=== PATIENT | female | born 1965 | race Caucasian/White ===

== ENCOUNTER → 2017-02-07 | Outpatient (CLI) | payer BC ==
--- NOTE | ~2017-02-07 | US24 ---
[facility] A Service [facility] RADIOLOGY TEXT RESULTS PATIENT: KASHIF ESTEVEZ LOCATION: [facility] : 61 UNIT #: [id number] AGE: [address]: Nam Farmer MD SEX: F ORDER DR: [id number] [facility]. [place], [place] [address] [id number] O MR#: [id number] Acc #: [id number] NAME: KASHIF ESTEVEZ. : 1965 SEX: F STUDY DATE/TIME: 02/07/2017 8:36 UNIT: [facility] ROOM: STUDY DESCRIPTION: US Breast Unilateral Attending Physician: Nam Farmer M.D. Ordering Physician: Nam Farmer M.D. Primary Care Physician: Nam Farmer M.D. MEDICAL IMAGING REPORT This report is preliminary unless electronic signature is present EXAM Left breast ultrasound. INDICATION Left breast pain in the axillary region. PROCEDURE Michaud-scale and Doppler imaging of the left breast from the 1-4 o'clock position in the axillary tail region. COMPARISON None. FINDINGS In area of patient's pain, there is a 12 mm benign simple cyst. No suspicious sonographic abnormality. IMPRESSION Benign left breast ultrasound. Recommend continued clinical followup. I recommend patient continue with yearly screening mammography. Patients over the age of 40 are entered into a reminder system with target due date for the next mammogram. A result letter will also be sent to the patient. BIRADS: 2 Benign findings. Dictated by... Tavo Romano M.D. THIS IS AN ELECTRONICALLY VERIFIED REPORT Tavo Romano M.D. at 02/09/2017 10:11 PM [facility] A Service [facility] RADIOLOGY TEXT RESULTS PATIENT: KASHIF ESTEVEZ LOCATION: [facility] : 61 UNIT #: [id number] AGE: [address]: Nam Farmer MD SEX: F ORDER DR: Rubi TD: 02/07/2017 20:26 JOB #: [id number] MEDICAL IMAGING REPORT Page 1 of 1 COPY
== END | disposition home or self-care (01) ==
LOC: CMAM 08:22
DX: N64.4 Mastodynia (principal)
CPT/HCPCS: 76641

== ENCOUNTER → 2017-02-09 | Day surgery (SDC) | payer BC ==
--- NOTE | ~2017-02-09 | US19 ---
[facility] A Service of [facility] RADIOLOGY TEXT RESULTS PATIENT: KASHIF ESTEVEZ LOCATION: [facility] : 61 UNIT #: [id number] AGE: [address]: Nam Farmer MD SEX: F ORDER DR: [id number] [facility] [address] [place], [place] [address] [id number] O MR#: [id number] Acc #: [id number] NAME: KASHIF ESTEVEZ. : 1965 SEX: F STUDY DATE/TIME: 02/09/2017 14:25 UNIT: [facility] ROOM: STUDY DESCRIPTION: US Breast Cyst Aspiiration W I Attending Physician: Nam Farmer M.D. Referring Physician: Nam Farmer M.D. Ordering Physician: Nam Farmer M.D. Primary Care Physician: Nam Farmer M.D. MEDICAL IMAGING REPORT This report is preliminary unless electronic signature is present EXAM Ultrasound-guided cyst aspiration left breast, 02/09/17. INDICATION 51-year-old female complaining of breast pain. On a recent ultrasound of 02/07/17, a benign cyst in the 1 o'clock position left breast was identified in the area of patient's pain symptoms. She has requested ultrasound-guided cyst aspiration for relief of her symptoms. FINDINGS The patient's prior imaging study was reviewed. Survey images here in the department confirm the presence of the benign cyst in the 1 o'clock position left breast 3 cm from nipple. It measures about 8 x 10 x 5 mm. It was adequately visualized to proceed. The procedure and risks were explained to the patient. The risks include but not limited to bleeding, infection or damage to adjacent structures. The patient gave both oral and written consent to proceed and the consent form was signed and on the chart prior to procedure. Prior to the procedure a "time-out" protocol was also followed to confirm patient identity and procedure details. TECHNIQUE The left breast was prepped, draped usual sterile fashion. Maximum sterile-barrier technique appropriate for procedure guidelines was utilized. This included the use of sterile gloves, sterile instruments and sterile drapes. Local anesthesia was achieved with about 2 mL of a buffered 1% lidocaine solution. Thereafter, using ultrasound guidance, a 20-gauge needle was advanced towards the cyst in the 1 o'clock position left breast. Appropriate needle location was documented with ultrasound throughout and images demonstrating appropriate needle placement were saved to the PACS system. The needle entered the cyst, and the cyst was drained to completion. Less than a mL of fluid was obtained and have a STS. [facility] A Service of [facility] RADIOLOGY TEXT RESULTS PATIENT: KASHIF ESTEVEZ LOCATION: [facility] : 61 UNIT #: [id number] AGE: [address]: Nam Farmer MD SEX: F ORDER DR: somewhat grayish color. The fluid was discarded, given the benign appearance of the cyst. The needle was removed. There were no immediate post-procedure complications. The patient tolerated the procedure well. Appropriate aftercare instructions will be provided to the patient. The patient should plan on returning for her screening mammogram in June of 2017 to maintain an annual screening schedule. This was also discussed with the patient, and she voiced understanding and agreement. IMPRESSION 1. Successful ultrasound-guided aspiration of a cyst in the left breast at 1 o'clock measuring about a centimeter. No immediate post-procedure complications. Return to an annual screening mammography regimen is recommended. See discussion above. BIRADS: 2 Benign findings. Dictated by... Coleman Cali M.D. THIS IS AN ELECTRONICALLY VERIFIED REPORT Coleman Cali M.D. at 02/13/2017 11:50 AM Laurita TD: 02/09/2017 17:55 JOB #: [id number] MEDICAL IMAGING REPORT Page 1 of 1 COPY
== END | disposition home or self-care (01) ==
LOC: CWCC 14:00
DX: N60.02 Solitary cyst of left breast (principal)
CPT/HCPCS: 76942

== ENCOUNTER → 2017-02-15 | Outpatient (CLI) | payer BC ==
--- NOTE | ~2017-02-15 | MY7 ---
[facility] A Service of [facility] RADIOLOGY TEXT RESULTS PATIENT: KASHIF ESTEVEZ LOCATION: [facility] : 61 UNIT #: [id number] AGE: [address]: Nam Farmer MD SEX: F ORDER DR: [id number] [facility] [address] [place], [place] [address] [id number] O MR#: [id number] Acc #: [id number] NAME: KASHIF ESTEVEZ. : 1965 SEX: F STUDY DATE/TIME: 02/15/2017 15:13 UNIT: [facility] ROOM: STUDY DESCRIPTION: MY Mammogram Dx Dig Lt Attending Physician: Nam Farmer M.D. Referring Physician: Nam Farmer M.D. Ordering Physician: Nam Farmer M.D. Primary Care Physician: Nam Farmer M.D. MEDICAL IMAGING REPORT This report is preliminary unless electronic signature is present EXAM Diagnostic left mammogram, 02/15. INDICATION Breast pain in the upper/outer quadrant over the last 2 weeks. Prior history of breast cysts. FINDINGS Digital CC, MLO and ML views of the left breast were obtained. The study was reviewed with an FDA-approved CAD device. Comparison is made with 06/22/16, 05/10/15, 01/18/15, 01/14/14. Parenchyma remains heterogeneously dense. There are no suspicious microcalcifications. There is a 2.2 cm, partially obscured nodule in the upper/outer quadrant of the left breast. Ultrasound was performed of the upper/outer quadrant of the left breast today. Ultrasound shows a 6 mm minimally complex cyst at 1 o'clock 4 cm from the nipple. There is a 1.7 cm cyst at 1 o'clock 4 cm from the nipple, which appears to correspond to the mammographic lesion. There is a third smaller cyst at 3 o'clock measuring about 5 mm in size. No suspicious ultrasound findings. Findings were discussed with the patient at the time of her examination today. IMPRESSION Benign left mammogram with benign targeted left ultrasound showing multiple cysts. Clinical follow up of patient's breast pain recommended at this time. Routine yearly mammographic screening recommended. Patients over the age of 40 are entered into a reminder system with target due date for the next mammogram. A result letter will also be sent to the patient. [facility] A Service of [facility] RADIOLOGY TEXT RESULTS PATIENT: KASHIF ESTEVEZ [id number] 61 UNIT #: [id number] AGE: [address]: Nam Farmer MD SEX: F ORDER DR: BIRADS: 2 Benign findings. Dictated by... Derick Mayer Jr., M.D. THIS IS AN ELECTRONICALLY VERIFIED REPORT Derick Mayer Jr., M.D. at 02/16/2017 6:11 AM ABBY/samanta TD: 02/15/2017 20:11 JOB #: [id number] MEDICAL IMAGING REPORT Page 1 of 1 COPY
--- NOTE | ~2017-02-15 | US24 ---
[facility] A Service of [facility] RADIOLOGY TEXT RESULTS PATIENT: KASHIF ESTEVEZ LOCATION: [facility] : 61 UNIT #: [id number] AGE: [address]: Nam Farmer MD SEX: F ORDER DR: [id number] [facility] [address] [place], [place] [address] [id number] O MR#: [id number] Acc #: [id number] NAME: KASHIF ESTEVEZ. : 1965 SEX: F STUDY DATE/TIME: 02/15/2017 15:33 UNIT: [facility] ROOM: STUDY DESCRIPTION: US Breast Unilateral Attending Physician: Nam Farmer M.D. Referring Physician: Nam Farmer M.D. Ordering Physician: Nam Farmer M.D. Primary Care Physician: Nam Farmer M.D. MEDICAL IMAGING REPORT This report is preliminary unless electronic signature is present EXAM Left breast ultrasound 02/15/2017 HISTORY Left upper outer quadrant breast pain for about 2 weeks. FINDINGS For full report, see the mammogram report dated 02/15/2017. Patients over the age of 40 are entered into a reminder system with target due date for the next mammogram. A result letter will also be sent to the patient. BIRADS: 2, benign findings. Dictated by... Derick Mayer Jr., M.D. THIS IS AN ELECTRONICALLY VERIFIED REPORT Derick Mayer Jr., M.D. at 02/16/2017 3:53 PM ABBY/tara TD: 02/15/2017 20:06 JOB #: [id number] MEDICAL IMAGING REPORT Page 1 of 1 COPY
== END | disposition home or self-care (01) ==
LOC: CMAM 15:00
DX: N64.4 Mastodynia (principal)
CPT/HCPCS: 76641; G0206